=== PATIENT | male | born 1980 | race Caucasian/White ===

== ENCOUNTER 2017-04-01 09:31 | Emergency (ER) | payer SELFPAY ==
[~2017-04-01] VITALS: Ht 182.9 cm; Wt 64.1 kg
[2017-04-01 11:27] VITALS: BP 139/88
== END 2017-04-01 11:27 | disposition home or self-care (01) ==
LOC: ED 09:31
DX: S91.331A Puncture wound without foreign body, right foot, initial encounter (principal); W22.8XXA Striking against or struck by other objects, initial encounter; Y93.89 Activity, other specified; Y92.89 Other specified places as the place of occurrence of the external cause; Y99.8 Other external cause status
CPT/HCPCS: 90715

== ENCOUNTER 2018-09-24 18:33 | Emergency (ER) | payer SELFPAY ==
[~2018-09-24] VITALS: Ht 188 cm; Wt 74.8 kg
[2018-09-24 18:53] VITALS: Ht 188 cm; Wt 74.8 kg
[2018-09-24 19:36] LABS: BASOPHIL % 1.4 % (0-2); PLATELET COUNT 200 x10^3mcL (130-400); RED CELL DISTRIBUTION WIDTH 14.4 % (11.5-14.5)
[2018-09-24 19:40] LABS: CALCIUM 8.1 mg/dL (8.5-10.1); CARBON DIOXIDE 26.2 mmol/L (21-32); CHLORIDE SERUM 103 mmol/L (98-107); CREATININE SERUM 0.9 mg/dL (0.7-1.3); GFR1 > 60 mL/min; GLUCOSE SERUM 99 mg/dL (74-106); POTASSIUM SERUM 4.5 mmol/L (3.5-5.1); SODIUM SERUM 140 mmol/L (136-145)
[2018-09-24 19:46] LABS: ALBUMIN 4.2 g/dL (3.4-5.0); ALKALINE PHOSPHATASE 61 U/L (46-116); ALT/SGPT 330 U/L (16-63); AST/SGOT 247 U/L (15-37); BILIRUBIN TOTAL 0.1 mg/dL (0.20-1.00); TOTAL PROTEIN, SERUM 8.1 g/dL (6.4-8.2)
[2018-09-24 20:42] LABS: AMPHETAMINE QUAL UR NONE DETECTED (See below)
[2018-09-25 13:19] VITALS: BP 155/84
== END 2018-09-25 13:19 ==
LOC: ED 18:33
PROVIDERS: Emergency Medicine
DX: R45.851 Suicidal ideations (principal); F10.129 Alcohol abuse with intoxication, unspecified
CPT/HCPCS: 36415; G0480; Q0092

== ENCOUNTER 2018-11-13 20:54 | Emergency (ER) | payer MEDICAID ==
[~2018-11-13] VITALS: Ht 182.9 cm; Wt 68.0 kg
[2018-11-13 21:19] VITALS: BP 143/111; Ht 182.9 cm; Wt 68.0 kg
[2018-11-13 22:04] LABS: BASOPHIL % 0.3 % (0-2); PLATELET COUNT 204 x10^3mcL (130-400); RED CELL DISTRIBUTION WIDTH 14.5 % (11.5-14.5)
[2018-11-13 22:12] LABS: CALCIUM 8.8 mg/dL (8.5-10.1); CARBON DIOXIDE 25.9 mmol/L (21-32); CHLORIDE SERUM 100 mmol/L (98-107); CREATININE SERUM 0.8 mg/dL (0.7-1.3); GFR1 > 60 mL/min; GLUCOSE SERUM 106 mg/dL (74-106); POTASSIUM SERUM 3.7 mmol/L (3.5-5.1); SODIUM SERUM 141 mmol/L (136-145)
[2018-11-13 22:16] LABS: AMPHETAMINE QUAL UR NONE DETECTED (See below)
[2018-11-13 22:17] LABS: ALBUMIN 4.6 g/dL (3.4-5.0); ALKALINE PHOSPHATASE 55 U/L (46-116); ALT/SGPT 194 U/L (16-63); AST/SGOT 184 U/L (15-37); BILIRUBIN TOTAL 0.29 mg/dL (0.20-1.00); LIPASE 203 IU/L (73-393); MAGNESIUM 2.3 mg/dL (1.8-2.4)
[2018-11-13 22:19] LABS: TOTAL PROTEIN, SERUM 8.6 g/dL (6.4-8.2)
== END 2018-11-13 22:05 | disposition left against medical advice (07) ==
LOC: ED 20:54
PROVIDERS: Emergency Medicine
DX: R11.10 Vomiting, unspecified (principal); R07.89 Other chest pain; R10.9 Unspecified abdominal pain; R03.0 Elevated blood-pressure reading, without diagnosis of hypertension
CPT/HCPCS: 36415; J7030

== ENCOUNTER 2019-04-02 23:27 | Emergency (ER) | payer MEDICAID ==
[~2019-04-02] VITALS: Ht 185.4 cm; Wt 59.0 kg
[2019-04-02 23:50] VITALS: Ht 185.4 cm; Wt 59.0 kg
[2019-04-03 01:54] VITALS: BP 134/92
== END 2019-04-03 01:54 | disposition home or self-care (01) ==
LOC: ED 23:27
DX: K52.9 Noninfective gastroenteritis and colitis, unspecified (principal); Z98.890 Other specified postprocedural states
CPT/HCPCS: J2405; J7030

== ENCOUNTER 2019-04-10 17:20 | Emergency (ER) | payer MEDICAID ==
[~2019-04-10] VITALS: Ht 165.1 cm; Wt 59.0 kg
[2019-04-10 17:29] VITALS: Ht 165.1 cm; Wt 59.0 kg
[2019-04-10 18:34] LABS: CALCIUM 8.3 mg/dL (8.5-10.1); CARBON DIOXIDE 25.7 mmol/L (21-32); CHLORIDE SERUM 104 mmol/L (98-107); GFR1 > 60 mL/min; GLUCOSE SERUM 89 mg/dL (74-106); POTASSIUM SERUM 3.6 mmol/L (3.5-5.1); SODIUM SERUM 146 mmol/L (136-145)
[2019-04-10 18:37] LABS: BASOPHIL % 0.3 % (0-2); PLATELET COUNT 223 x10^3mcL (130-400); RED CELL DISTRIBUTION WIDTH 14.5 % (11.5-14.5)
[2019-04-10 18:39] LABS: ALBUMIN 3.7 g/dL (3.4-5.0); ALKALINE PHOSPHATASE 61 U/L (46-116); ALT/SGPT 64 U/L (16-63); AST/SGOT 50 U/L (15-37); BILIRUBIN TOTAL 0.3 mg/dL (0.20-1.00); LIPASE 346 IU/L (73-393)
[2019-04-10 19:41] LABS: AMPHETAMINE QUAL UR NONE DETECTED (See below)
[2019-04-11 01:27] VITALS: BP 120/88
== END 2019-04-10 19:38 | disposition left against medical advice (07) ==
LOC: ED 17:20
PROVIDERS: Emergency Medicine
DX: R07.89 Other chest pain (principal); R10.12 Left upper quadrant pain; F10.129 Alcohol abuse with intoxication, unspecified; R11.2 Nausea with vomiting, unspecified; R05 Cough; Z98.890 Other specified postprocedural states; Y90.8 Blood alcohol level of 240 mg/100 ml or more
CPT/HCPCS: 36415; 83880; G0480